=== PATIENT | male | born 1955 | race Caucasian/White ===

== ENCOUNTER 2016-06-14 14:46 | Emergency (ER) | payer OTHER ==
[~2016-06-14] VITALS: Ht 175.3 cm; Wt 67.6 kg
[~2016-06-14 14:46] MED LIST: Levaquin PO; TAMIFLU75 MG PO; TESSALON200 MG PO
[2016-06-14 16:01] LABS: EOSINOPHIL (%) 1.6 % (0-5); EOSINOPHIL COUNT 0.1 K/uL (0-0.3); HEMATOCRIT 40.8 % (38.0-50.0); IMMATURE GRANULOCYTE (%) 0.3 % (0.0-0.7); INSTRUMENT ABS NEUTROPHIL CT 4.5 K/uL; LYMPHOCYTE COUNT 2.1 K/uL (1.0-2.8); MCH 29.7 PG (29.0-34.0); MCHC 34.6 G/DL (30.0-36.0); MCV 86.1 FL (86-99); MEAN PLAT.VOLUME 9.7 uM^3 (9.0-12.4); MONOCYTE (%) 8.1 % (3-12); MONOCYTE COUNT 0.6 K/uL (0-0.8); NEUTROPHIL (%) 61.2 % (45-76); NEUTROPHIL COUNT 4.5 K/uL (1.8-6.4); PLATELET COUNT 269 K/uL (156-360); RBC DIS.WIDTH-CV 11.8 % (11.8-14.6); RED BLOOD COUNT 4.74 M/uL (4.00-5.50); WHITE BLOOD COUNT 7.3 K/uL (4.1-10.2)
[2016-06-14 16:10] LABS: CHLORIDE 103 mEq/L (99-109); POTASSIUM 4.3 mEq/L (3.7-5.4); SODIUM 137 mEq/L (136-147)
[2016-06-14 16:12] LABS: GLUCOSE 143 mg/dL (70-99)
[2016-06-14 16:13] LABS: ANION GAP 7 MEQ/L (2-14); D-DIMER ELISA 0.19 mg/L FEU (< 0.57); PTT 26.6 (25-32)
[2016-06-14 16:15] LABS: GFR ESTIMATE (CALCULATED) > 59 mL/min/
[2016-06-14 16:16] LABS: UREA NITROGEN (BUN) 7 mg/dL (9-23)
[2016-06-14 16:23] LABS: TROP-I INTERPRETATION NEGATIVE; TROPONIN-I < 0.01 ng/mL (0.0-0.30)
[2016-06-14 18:30] LABS: TROP-I INTERPRETATION NEGATIVE; TROPONIN-I < 0.01 ng/mL (0.0-0.30)
[2016-06-14 19:57] VITALS: BP 140/75
== END 2016-06-14 19:58 | disposition home or self-care (01) ==
LOC: EME 14:46
PROVIDERS: Emergency Medicine
DX: R07.9 Chest pain, unspecified (principal); F03.90 Unspecified dementia, unspecified severity, without behavioral disturbance, psychotic disturbance, mood disturbance, and anxiety; Z88.0 Allergy status to penicillin
CPT/HCPCS: 71010; 80048; 84484; 85025; 85379; 85610; 85730; 93005; 99281; 99284